=== PATIENT | female | born 1965 | race Caucasian/White ===

== ENCOUNTER 2018-07-03 08:35 | Emergency (ER) | payer BC ==
--- NOTE | 2018-07-03 08:48 | Emergency Department Record ---
History of Present Illness - General Chief Complaint: Ankle/Foot Injury Stated Complaint: left foot/ankle injury Time Seen by Provider: 07/03/18 08:38 Source: Patient Mode of Arrival: Ambulatory Limitations: No limitations - History of Present Illness Initial Comments: The patient is here due to injuring her L ankle last evening. She was walking and rolled it and felt a "POP". It has been painful since. She is able to walk on it with pain. MD Complaint: Ankle injury Onset/Timin -: Hour(s) Severity scale (1-10): 6 - Related Data Home Medications Medication Instructions Recorded Confirmed Last Taken Calcium Carbonate/Vitamin D3 1 each PO DAILY 07/03/18 07/03/18 07/03/18 [Caltrate 600 Plus D3 Tablet] Celecoxib [Celebrex] 200 mg PO BID 07/03/18 07/03/18 07/03/18 Cholecalciferol (Vitamin D3) 1,000 unit PO DAILY 07/03/18 07/03/18 07/03/18 [Vitamin D3] Duloxetine HCl [Cymbalta] 60 mg PO QHS 07/03/18 07/03/18 07/03/18 Estrogens, Conjugated [Premarin] 42.5 gm VG WEEKLY 07/03/18 07/03/18 07/03/18 Methocarbamol [Robaxin] 500 mg PO BID 07/03/18 07/03/18 07/03/18 Morphine Sulfate 15 mg PO BID 07/03/18 07/03/18 07/03/18 Multivitamin [Multiple Vitamins] 1 each PO DAILY 07/03/18 07/03/18 07/03/18 Olanzapine [Zyprexa] 15 mg PO DAILY 07/03/18 07/03/18 07/03/18 Sertraline HCl [Zoloft] 100 mg PO DAILY 07/03/18 07/03/18 07/03/18 Topiramate [Topamax] 100 mg PO BID 07/03/18 07/03/18 07/03/18 Allergies Allergy/AdvReac Type Severity Reaction Status Date / Time NSAIDS (Non-Steroidal AdvReac HYPERSENSIT Verified 07/03/18 08:44 Anti-Inflamma IVITY Travel Screening - Travel/Exposure Within Last 30 Days Have you traveled within the last 30 days?: No - Travel/Exposure Within Last Year Have you traveled outside the [place] in the last year?: No - Additonal Travel Details Have you been exposed to anyone with a communicable illness?: No Review of Systems Constitutional: Denies: Chills, Fever Eyes: Denies: Eye discharge ENT: Denies: Congestion Respiratory: Denies: Cough Past Medical History - SOCIAL HISTORY Smoking Status: Never smoker Family Medical History Any Significant Family History?: No Physical Exam - General General Appearance: Alert, Cooperative, No acute distress - Head Head exam: Atraumatic, Normocephalic - Eye Eye exam: Normal appearance - Extremities Extremities exam: Full ROM (with mild pain. There is no ligamentous laxity.), Normal capillary refill, Tenderness, Other (There is no foot tenderness.). negative: Normal inspection (There is mild bruising in the anterior TFL area with tenderness.), Calf tenderness Course Vital Signs 07/03/18 07/03/18 08:37 08:44 Temperature 97.5 F L Pulse Rate 80 Respiratory 18 Rate Blood Pressure 126/110 Blood Pressure 130/89 [Left Arm] Pulse Ox 95 - Reevaluation(s) Reevaluation #1: I did discuss the xrays with the patient and the need to F/U next week if not better. 07/03/18 09:58 Medical Decision Making - Data Complexity MDM Data: X-Ray Ordered and/or Reviewed - Radiology Data Radiology results: Report reviewed (L foot: Neg for acute changes. L ankle: prob avulsion sprain due to flecks of bone off end of distal fibula. No acute fx.) Disposition Disposition: Discharge Clinical Impression: Ankle sprain Qualifiers: Encounter type: initial encounter Involved ligament of ankle: unspecified ligament Laterality: left Qualified Code(s): S93.402A - Sprain of unspecified ligament of left ankle, initial encounter Disposition: Home, Self-Care Condition: (2) Stable Instructions: Ankle Sprain (ED) Additional Instructions: Please wear the splint for a week and use your home crutches if needed. Please ice and elevate the ankle for 3 days and limit your walking. Please see your family doctor next week if not better and take your home pain medicines as needed. Forms: Patient Portal Access Time of Disposition: 10:00 Quality - Quality Measures Quality Measures: N/A - Blood Pressure Screening View Details: Yes Does Patient Have Any of the Following: No Blood Pressure Classification: Hypertensive Reading Systolic Measurement: 134 Diastolic Measurement: 91 Screening for High Blood Pressure: < First Hypertensive BP, F/U Documented > [ [id number]] First Hypertensive Follow-up Interventions: Referral to alternative/primary care provider.
--- NOTE | 2018-07-04 13:54 | RADIOLOGY REPORT ---
EXAM: LEFT ANKLE AND LEFT FOOT HISTORY: TWISTING INJURY WITH LEFT ANKLE PAIN. TECHNIQUE: Three views of the left ankle and three views of the left foot were obtained. Comparison: None. FINDINGS: Prominent lateral ankle soft tissue swelling. Punctate 1-2 mm calcific densities near the distal tip of the lateral malleolus suggestive of avulsion. Otherwise, no evidence of acute fracture. No dislocation. Moderate sized calcaneal enthesophyte. Degenerative osteophytes at the talonavicular and calcaneal cuboid joints. IMPRESSION: 1. PUNCTATE CALCIFIC DENSITIES AT THE TIP OF THE LATERAL MALLEOLUS SUSPICIOUS FOR AVULSION. OTHERWISE, NO ACUTE OSSEOUS FINDINGS IN THE FOOT OR ANKLE. 2. DEGENERATIVE CHANGES OF THE FOOT, DESCRIBED ABOVE. 3. PLANTAR CALCANEAL ENTHESOPHYTE/HEEL SPUR. JOB [facility]BER: [id number] [facility]
== END 2018-07-03 10:05 | disposition home or self-care (01) ==
LOC: ER 08:35
DX: S93.402A Sprain of unspecified ligament of left ankle, initial encounter (principal); M79.672 Pain in left foot; X50.0XXA Overexertion from strenuous movement or load, initial encounter
CPT/HCPCS: 99283